=== PATIENT | male | born 1990 | race Caucasian/White ===

== ENCOUNTER 2019-02-06 13:08 | Outpatient (CLI) | payer OTHER ==
--- NOTE | 2019-02-06 15:20 | Diagnostic Imaging Report ---
Indication: Abdominal pain Technique: Grayscale and duplex Doppler imaging of the abdomen performed. Comparison: None Findings: The liver is unremarkable. Doppler interrogation of the main portal vein shows patency with hepatopedal, monophasic flow. There is no biliary ductal dilatation identified. Gallbladder is unremarkable. CBD 3.3 mm. There demonstrated part of the pancreas, aorta and IVC show no definite abnormalities. Both kidneys appear unremarkable. There is no hydronephrosis. IMPRESSION: No acute findings identified.
== END 2019-02-06 15:08 | disposition home or self-care (01) ==
LOC: ULS 13:08
DX: E72.3 Disorders of lysine and hydroxylysine metabolism (principal); R10.9 Unspecified abdominal pain
CPT/HCPCS: 76700